=== PATIENT | female | born 1970 | race Caucasian/White ===

== ENCOUNTER → 2018-05-04 13:10 | Observation (INO) ==
[2018-05-03 22:25] LABS: BASOPHILS # (AUTO) 0.1 X10^3/uL (0.0-0.1); BASOPHILS % (AUTO) 0.8 % (0.2-1.0); EOSINOPHILS # (AUTO) 0.4 x10^3/uL (0.0-0.2); EOSINOPHILS % (AUTO) 5.3 % (0.9-2.9); HEMATOCRIT 38.6 % (36.0-47.0); HEMOGLOBIN 13.2 g/dL (12.0-16.0); LYMPHOCYTES # (AUTO) 1.8 X10^3/uL (1.3-2.9); LYMPHOCYTES % (AUTO) 26.6 % (21.0-51.0); MEAN CORPUSCULAR HEMOGLOBIN 32.8 pg (27.0-34.0); MEAN CORPUSCULAR HGB CONC 34.2 g/dL (33.0-35.0); MEAN CORPUSCULAR VOLUME 95.9 fL (80.0-100.0); MEAN PLATELET VOLUME 8.5 fL (7.4-11.0); MONOCYTES # (AUTO) 0.4 x10^3/uL (0.3-0.8); MONOCYTES % (AUTO) 5.8 % (0.0-13.0); NEUTROPHILS # (AUTO) 4.1 x10^3/uL (2.2-4.8); NEUTROPHILS % (AUTO) 61.5 % (42.0-75.0); PLATELET COUNT 227 X10^3/uL (150.0-450.0); RED BLOOD COUNT 4.03 X10^6/uL (3.5-5.4); RED CELL DISTRIBUTION WIDTH 14.1 % (11.6-16.5); WHITE BLOOD COUNT 6.7 X10^3/uL (3.6-10.0)
[2018-05-03 22:33] LABS: ALANINE AMINOTRANSFERASE 20 Units/L (12-78); ALBUMIN 3.6 g/dL (3.4-5.0); ALKALINE PHOSPHATASE 59 Units/L (46-116); AMYLASE 28 Units/L (25-115); ASPARTATE AMINO TRANSFERASE 14 Units/L (15-37); BLOOD UREA NITROGEN 19 mg/dL (7-18); CALCIUM 9.3 mg/dL (8.5-10.1); CARBON DIOXIDE 25.9 mmol/L (21-32); CHLORIDE 104 mmol/L (98-107); CREATININE 0.71 mg/dL (0.55-1.02); LIPASE 72 Units/L (73-393); MAGNESIUM 2.1 mg/dL (1.7-2.9); SODIUM 137 mmol/L (136-145); TOTAL PROTEIN 6.2 g/dL (6.4-8.2); eGFR NON BLACK RACES > 60 (>60)
[2018-05-03 22:35] VITALS: BMI 39.5
[2018-05-03] MEDS: NS 1000 ML 1,000 ML IV SCH (22:43)
[2018-05-04] MEDS: NS 1000 ML 1,000 ML IV SCH (06:04)
[2018-05-04 06:24] LABS: BASOPHILS % (AUTO) 0.6 % (0.2-1.0); EOSINOPHILS # (AUTO) 0.3 x10^3/uL (0.0-0.2); HEMATOCRIT 36.9 % (36.0-47.0); HEMOGLOBIN 12.6 g/dL (12.0-16.0); LYMPHOCYTES # (AUTO) 1.5 X10^3/uL (1.3-2.9); LYMPHOCYTES % (AUTO) 34.5 % (21.0-51.0); MEAN CORPUSCULAR HEMOGLOBIN 32.8 pg (27.0-34.0); MEAN CORPUSCULAR HGB CONC 34.1 g/dL (33.0-35.0); MEAN CORPUSCULAR VOLUME 96.4 fL (80.0-100.0); MEAN PLATELET VOLUME 8.8 fL (7.4-11.0); MONOCYTES # (AUTO) 0.2 x10^3/uL (0.3-0.8); MONOCYTES % (AUTO) 5.5 % (0.0-13.0); NEUTROPHILS # (AUTO) 2.3 x10^3/uL (2.2-4.8); NEUTROPHILS % (AUTO) 53.4 % (42.0-75.0); PLATELET COUNT 193 X10^3/uL (150.0-450.0); RED BLOOD COUNT 3.83 X10^6/uL (3.5-5.4); RED CELL DISTRIBUTION WIDTH 14.3 % (11.6-16.5); WHITE BLOOD COUNT 4.3 X10^3/uL (3.6-10.0)
[2018-05-04 06:26] LABS: BILIRUBIN,URINE NEGATIVE (NEGATIVE); BLOOD/HEMOGLOBIN,URINE NEGATIVE (NEGATIVE); GLUCOSE, URINE NEGATIVE (NEGATIVE); KETONES,URINE NEGATIVE (NEGATIVE); LEUKOCYTE ESTERASE ,URINE NEGATIVE (NEGATIVE); NITRITES,URINE NEGATIVE (NEGATIVE); PROTEIN,URINE 1+ (NEGATIVE); UROBILINOGEN,URINE NORMAL (NORMAL)
[2018-05-04 06:28] LABS: ALANINE AMINOTRANSFERASE 17 Units/L (12-78); ALBUMIN 3.1 g/dL (3.4-5.0); ALKALINE PHOSPHATASE 53 Units/L (46-116); ASPARTATE AMINO TRANSFERASE 12 Units/L (15-37); BLOOD UREA NITROGEN 15 mg/dL (7-18); CALCIUM 8.8 mg/dL (8.5-10.1); CHLORIDE 107 mmol/L (98-107); COR CA(FOR HYPOALB) 9.5 mg/dL (8.5-10.1); CREATININE 0.69 mg/dL (0.55-1.02); SODIUM 140 mmol/L (136-145); TOTAL PROTEIN 5.6 g/dL (6.4-8.2); eGFR NON BLACK RACES > 60 (>60)
[2018-05-04 06:35] LABS: APPEARANCE,URINE CLEAR (CLEAR); COLOR,URINE YELLOW (YELLOW)
[2018-05-04 06:36] LABS: BACTERIA,URINE NEGATIVE /HPF (NEGATIVE); RBC,URINE NONE SEEN /HPF (NONE SEEN); SQUAMOUS EPITHELIAL CELL,UR FEW /HPF (NEGATIVE)
--- NOTE | 2018-05-04 08:22 | DR.UPDATE ---
H&P Update History and Physical Update: H&P UPDATE FOR 05/03/2018 WAS SEEN TODAY IN THE OFFICE. A H&P WAS COMPLETED PRIOR TO ADMISSION. PATIENT HAS BEEN SEEN AND EXAMINED WITH NO CHANGES NOTED TO H&P. Changes noted: NO Yes with the following:
--- NOTE | 2018-05-04 09:52 | RAD ---
History: Right-sided abdominal pain Study: KUB Findings: A spine view of the abdomen and pelvis shows postoperative changes of laparoscopic band pro cedure. A large amount of stool is seen within the right colon extending to the mid transverse colon. Scatter ed gas is seen within the left colon. No focal distension of small bowel is evident. Surgical clips a re seen within the gallbladder fossa. The inferior pelvis is not included on the film. Impression: 1. Status post laparoscopic band procedure. 2. Changes compatible constipation with a large amount of stool in the right colon extending to the m id transverse colon. 3. No focal distension of small or large bowel. Reported By:
[~2018-05-04 13:10] MED LIST: ATIVAN INJ 2 MG VIAL IVP PRN; DULCOLAX SUPPOSITORY 10 MG RECTAL SCH; MILK OF MAGNESIA PO SCH; MOBIC TAB 15 MG PO SCH; TORADOL 30 MG VIAL IVP SCH; ZOFRAN INJ 4 MG VIAL IVP PRN
[2018-05-04 13:32] VITALS: BP 115/62
--- NOTE | 2018-05-19 13:38 | DR.CARTERD ---
- Discharge Summary for: Discharge Summary for Date of:: 05/04/18 - Admission Date Date of Admission: 05/03/18 - Admission Diagnoses Admission Diagnosis: 1. Low back pain 2. Nausea 3. Anxiety - Discharge Date Discharge Date: 05/04/18 - Discharge Diagnoses Discharge Diagnosis: 1. Low back pain 2. Constipation 3. Nausea 4. Anxiety - Hospital Course Hospital Course: Day one, Ms. Montano was a direct admit from our office. Patient was seen in office complaining of lower right side back pain. Patient underwent out patient testing suggesting possible Ileus. Patient rated pain a 5 on scale of 0-10 in lower back. Patient complained of nausea with anxiety and had received Ativan 1mg IV and Zofran 4mg IV X 1. Patient had large amt of stool noted on KUB. Patient was admitted for further evaluation and treatment. We continued to monitor patient and manage pain as we gently hydrated. Medical Hx: Anxiety, Depression, Smoker. Medications: Ativan IV 1MG IVP Q 8H PRN, Zofran INJ 4mg IVP Q 4H PRN N/V, Normal Saline @ 100mls HR IV. Abnormal Labs: BUN 19, AST 14, Total Protein 6.2, Lipase 72. Urine: WNL. KUB: Status post laparoscopic band procedure; Changes compatible constipation with a large amount of stool in the right colon extending to the mid transverse colon; No focal distension of small or large bowel. Ct of abd/pelvis obtained and reported: No evidence of renal stones or hydroureteronephrosis; No acute intra-abdominal intrapelvic process; Status post appendectomy and cholecystectomy. Patient started on Meloxicam po and Toradol IV. Day two, patient reported she was feeling better. She reported back pain was improved with medications. Patient received a Dulcolax suppository and Milk of Magnesia for constipation. She denied abdominal pain. Vital signs stable. Labs wnl. We planned for discharge. Instructions for medications and follow up were discussed with patient and family, both voiced understanding. Patient discharged home in stable condition with family. - Discharge Medications Discharge Medications: Home Medication List meloxicam 15 mg PO DAILY #30 tab 05/04/18 [Rx] tizanidine [Zanaflex] 4 mg PO HS #30 cap 05/04/18 [Rx] Prescriptions: meloxicam Wilfredo Buckley tizanidine [Zanaflex] Wilfredo Buckley Home medications alprazolam 0.5 mg PO NEEDED PRN 06/23/14 escitalopram oxalate [Lexapro] 20 mg PO DAILY 06/23/14 - Discharge Disposition Discharge Disposition: Patient is to follow up with LACI Schaefer in one week.
== END | disposition home or self-care (01) ==
LOC: MED/SURG
PROVIDERS: ADMIT Internal Medicine; ATTEND Internal Medicine
DX: K56.7 Ileus, unspecified; R10.84 Generalized abdominal pain; R11.0 Nausea; R93.8 Abnormal findings on diagnostic imaging of other specified body structures
CPT/HCPCS: 36415; 74000; 74018; 80053; 81001; 82150; 83690; 83735; 85025; 87086; A4216; A4222; G0378; J1885; J2060; J2405; J7030

== ENCOUNTER 2023-12-29 14:15 | Observation (INO) ==
--- NOTE | 2023-12-29 14:42 | EKG ---
Test Reason : HYPOXIA Blood Pressure : */* mmHG Vent. Rate : 81 BPM Atrial Rate : 81 BPM P-R Int : 130 ms QRS Dur : 94 ms QT Int : 362 ms P-R-T Axes : 59 18 49 degrees QTc Int : 420 ms Sinus rhythm with occasional premature ventricular complexes Otherwise normal ECG No previous ECGs available Confirmed by Jamar Miramontes MD ([id number]) on 12/30/2023 7:35:19 AM Referred By: Confirmed By: Jamar Miramontes MD
[2023-12-29 15:17] LABS: BASOPHILS # (AUTO) 0.1 X10^3/uL (0.0-0.1); BASOPHILS % (AUTO) 1.6 % (0.2-1.0); EOSINOPHILS # (AUTO) 0.3 x10^3/uL (0.0-0.2); HEMATOCRIT 33.3 % (36.0-47.0); HEMOGLOBIN 10.8 g/dL (12.0-16.0); LYMPHOCYTES # (AUTO) 1.2 X10^3/uL (1.3-2.9); LYMPHOCYTES % (AUTO) 23.1 % (21.0-51.0); MEAN CORPUSCULAR HEMOGLOBIN 27.4 pg (27.0-34.0); MEAN CORPUSCULAR HGB CONC 32.4 g/dL (33.0-35.0); MEAN CORPUSCULAR VOLUME 84.5 fL (80.0-100.0); MEAN PLATELET VOLUME 8.1 fL (7.4-11.0); MONOCYTES # (AUTO) 0.4 x10^3/uL (0.3-0.8); MONOCYTES % (AUTO) 7.5 % (0.0-13.0); NEUTROPHILS # (AUTO) 3.1 x10^3/uL (2.2-4.8); NEUTROPHILS % (AUTO) 61.8 % (42.0-75.0); PLATELET COUNT 261 X10^3/uL (150.0-450.0); RED BLOOD COUNT 3.94 X10^6/uL (3.5-5.4); WHITE BLOOD COUNT 5.1 X10^3/uL (3.6-10.0)
[2023-12-29 15:27] LABS: ALANINE AMINOTRANSFERASE 16 Units/L (12-78); ALKALINE PHOSPHATASE 72 Units/L (46-116); ASPARTATE AMINO TRANSFERASE 10 Units/L (15-37); BLOOD UREA NITROGEN 6 mg/dL (7-18); CALCIUM 9.6 mg/dL (8.5-10.1); CARBON DIOXIDE 25.4 mmol/L (21-32); CHLORIDE 104 mmol/L (98-107); COR CA(FOR HYPOALB) 10.4 mg/dL (8.5-10.1); CREATININE 0.88 mg/dL (0.55-1.02); GLUCOSE 93 mg/dL (65-99); SODIUM 140 mmol/L (136-145); TOTAL PROTEIN 7.1 g/dL (6.4-8.2); eGFR NON BLACK RACES > 60 (>60)
[2023-12-29 15:42] LABS: ABG ALLEN TEST POS; ABG HCO3 25.5 mmol/L (22-26)
--- NOTE | 2023-12-29 15:47 | RAD ---
EXAM:CHEST, 1 VIEWHISTORY:COVID, hypoxemiaCOMPARISON:12/25/2023FINDINGS:T he trachea is midline. The cardiac silhouette is unremarkable. Improved aeration of the right lower lobe and right mid lung zone is observed consistent with a resolving bronchopneumonia. The left hemithorax appears clear. The bony thorax is unremarkable.IMPRESSION:Improved aeration of the right hemithorax.THIS IS AN ELECTRONICALLY VERIFIED FINAL REPORT12/29/2023 3:43 PM - Electronically signed by Yonatan Brown MD
[2023-12-29] MEDS: XOPENEX 1.25 MG/3 ML NEBULE NEB ONE (16:01)
[2023-12-29] MEDS: ROBITUSSIN (PLAIN) PO SCH (16:11)
[2023-12-29] MEDS: SOLU-Medrol 125 MG VIAL IVP SCH (16:12)
[2023-12-29] MEDS: PROTONIX INJ 40 MG VIAL IVP SCH (16:12)
[2023-12-29] MEDS: ZITHROMAX INJ 500 MG VIAL 500 MG in NS 250 ML IV 250 ML IV SCH (16:16)
[2023-12-29] MEDS: NS 1,000 ML IV 1,000 ML IV SCH (16:17)
[2023-12-29] MEDS: LEVAQUIN PREMIX IV 500 MG 500 MG/100 ML BAG IV SCH (16:17)
[2023-12-29] MEDS: ZOFRAN INJ 4 MG VIAL IVP SCH (16:25)
[2023-12-29 17:05] LABS: BILIRUBIN,URINE NEGATIVE (NEGATIVE); BLOOD/HEMOGLOBIN,URINE NEGATIVE (NEGATIVE); GLUCOSE, URINE NEGATIVE (NEGATIVE); KETONES,URINE NEGATIVE (NEGATIVE); LEUKOCYTE ESTERASE ,URINE NEGATIVE (NEGATIVE); NITRITES,URINE NEGATIVE (NEGATIVE); PROTEIN,URINE NEGATIVE (NEGATIVE); UROBILINOGEN,URINE 1+ (NORMAL)
[2023-12-29 17:15] LABS: APPEARANCE,URINE CLEAR (CLEAR); BACTERIA,URINE NEGATIVE /HPF (NEGATIVE); COLOR,URINE YELLOW (YELLOW); RBC,URINE NONE SEEN /HPF (0-3); SQUAMOUS EPITHELIAL CELL,UR RARE /HPF (NEGATIVE)
[2023-12-29] MEDS: TYLENOL 325 MG TAB PO PRN (17:41)
[2023-12-29] MEDS: PULMICORT NEB TX 0.5 MG NEB SCH (20:55)
[2023-12-29] MEDS: XOPENEX 1.25 MG/3 ML NEBULE NEB SCH (20:55)
[2023-12-29] MEDS: RESTORIL CAP 15 MG PO PRN (23:08)
[2023-12-30 06:16] LABS: BASOPHILS % (AUTO) 0.1 % (0.2-1.0); HEMATOCRIT 28.3 % (36.0-47.0); HEMOGLOBIN 9.4 g/dL (12.0-16.0); LYMPHOCYTES # (AUTO) 0.3 X10^3/uL (1.3-2.9); LYMPHOCYTES % (AUTO) 7.7 % (21.0-51.0); MEAN CORPUSCULAR HEMOGLOBIN 27.9 pg (27.0-34.0); MEAN CORPUSCULAR HGB CONC 33.4 g/dL (33.0-35.0); MEAN CORPUSCULAR VOLUME 83.7 fL (80.0-100.0); MONOCYTES # (AUTO) 0 x10^3/uL (0.3-0.8); MONOCYTES % (AUTO) 1.1 % (0.0-13.0); NEUTROPHILS # (AUTO) 3.4 x10^3/uL (2.2-4.8); NEUTROPHILS % (AUTO) 91.1 % (42.0-75.0); PLATELET COUNT 223 X10^3/uL (150.0-450.0); RED BLOOD COUNT 3.38 X10^6/uL (3.5-5.4); WHITE BLOOD COUNT 3.7 X10^3/uL (3.6-10.0)
[2023-12-30 06:24] LABS: ALANINE AMINOTRANSFERASE 16 Units/L (12-78); ALBUMIN 2.7 g/dL (3.4-5.0); ALKALINE PHOSPHATASE 63 Units/L (46-116); ASPARTATE AMINO TRANSFERASE < 6 Units/L (15-37); BLOOD UREA NITROGEN 6 mg/dL (7-18); CALCIUM 9.1 mg/dL (8.5-10.1); CARBON DIOXIDE 23.8 mmol/L (21-32); CHLORIDE 104 mmol/L (98-107); COR CA(FOR HYPOALB) 10.1 mg/dL (8.5-10.1); COR NA(FOR HYPERGLY) 139 mmol/L (136-145); CREATININE 0.88 mg/dL (0.55-1.02); GLUCOSE 162 mg/dL (65-99); POTASSIUM 3.9 mmol/L (3.5-5.1); SODIUM 138 mmol/L (136-145); TOTAL PROTEIN 6.6 g/dL (6.4-8.2); eGFR NON BLACK RACES > 60 (>60)
[2023-12-30 06:57] LABS: BAND NEUTROPHILS % 8 % (0-10); PLATELET MORPHOLOGY COMMENT NORMAL (NORMAL)
[2023-12-30 06:58] LABS: ANISOCYTOSIS SLIGHT
[2023-12-30] MEDS: XOPENEX 1.25 MG/3 ML NEBULE NEB ONE (07:03)
[2023-12-30] MEDS: BENICAR PO SCH (09:05)
[2023-12-30] MEDS: PROzac PO SCH (09:05)
[2023-12-30 09:41] LABS: RETICULOCYTE % 1.33 % (0.8-2.2)
[2023-12-30] MEDS: TUSSIONEX PENNKINETIC SUSP PO PRN (10:03)
[2023-12-30] MEDS: LASIX IVP SCH (13:06)
[2023-12-30] MEDS: SOLU-Medrol 125 MG VIAL IVP SCH (20:50)
[2023-12-31 06:28] LABS: BASOPHILS % (AUTO) 0.1 % (0.2-1.0); HEMATOCRIT 28.7 % (36.0-47.0); HEMOGLOBIN 9.3 g/dL (12.0-16.0); LYMPHOCYTES # (AUTO) 0.4 X10^3/uL (1.3-2.9); LYMPHOCYTES % (AUTO) 4.8 % (21.0-51.0); MEAN CORPUSCULAR HEMOGLOBIN 27.6 pg (27.0-34.0); MEAN CORPUSCULAR HGB CONC 32.5 g/dL (33.0-35.0); MEAN CORPUSCULAR VOLUME 84.7 fL (80.0-100.0); MEAN PLATELET VOLUME 8.3 fL (7.4-11.0); MONOCYTES # (AUTO) 0.2 x10^3/uL (0.3-0.8); MONOCYTES % (AUTO) 2.5 % (0.0-13.0); NEUTROPHILS # (AUTO) 7.8 x10^3/uL (2.2-4.8); NEUTROPHILS % (AUTO) 92.6 % (42.0-75.0); PLATELET COUNT 256 X10^3/uL (150.0-450.0); RED BLOOD COUNT 3.38 X10^6/uL (3.5-5.4); RED CELL DISTRIBUTION WIDTH 17.3 % (11.6-16.5); WHITE BLOOD COUNT 8.5 X10^3/uL (3.6-10.0)
[2023-12-31 06:40] LABS: ALANINE AMINOTRANSFERASE 15 Units/L (12-78); ALBUMIN 2.8 g/dL (3.4-5.0); ALKALINE PHOSPHATASE 60 Units/L (46-116); ASPARTATE AMINO TRANSFERASE 8 Units/L (15-37); BLOOD UREA NITROGEN 11 mg/dL (7-18); CALCIUM 9.3 mg/dL (8.5-10.1); CARBON DIOXIDE 22.4 mmol/L (21-32); CHLORIDE 105 mmol/L (98-107); COR CA(FOR HYPOALB) 10.3 mg/dL (8.5-10.1); COR NA(FOR HYPERGLY) 141 mmol/L (136-145); CREATININE 1.01 mg/dL (0.55-1.02); GLUCOSE 196 mg/dL (65-99); POTASSIUM 3.8 mmol/L (3.5-5.1); SODIUM 139 mmol/L (136-145); TOTAL PROTEIN 6.5 g/dL (6.4-8.2); eGFR NON BLACK RACES > 60 (>60)
[2023-12-31] MEDS ORDERED: ROBITUSSIN (PLAIN) PO PRN ×2 (06:50→07:13)
[2023-12-31 07:37] LABS: BAND NEUTROPHILS % 6 % (0-10); PLATELET MORPHOLOGY COMMENT NORMAL (NORMAL)
[2023-12-31] MEDS ORDERED: ZITHROMAX INJ 500 MG VIAL IV ONE (08:33)
[2023-12-31] MEDS: ZOFRAN INJ 4 MG VIAL IVP SCH (08:53)
[2023-12-31] MEDS: TUSSIONEX PENNKINETIC SUSP PO SCH (08:53)
[2023-12-31] MEDS: SOLU-Medrol 40 MG VIAL IVP SCH (08:55)
[2023-12-31] MEDS: NS 100 ML IV 100 ML ONE (12:41)
[2023-12-31] MEDS: OMNIPAQUE 350 mg/mL 100 mL BTL 100 ML ONE (12:41)
--- NOTE | 2023-12-31 13:12 | DR.H&P ---
H&P History & Physical for Day of: H&P Date: 12/29/23 Chief Complaint Chief Complaint: Abdominal pain, nausea, vomiting, shortness of breath since 12/24/23 Allergies Allergies Allergy/AdvReac Type Severity Reaction Status Date / Time No Known Drug Allergies Allergy Unknown Verified 12/29/23 15:23 History of Present Illness History of Present Illness: 53 year old white female patient who is a direct admit for treatment of Covid-19 pneumonia with hypoxia. Patient reports having ongoing symptoms of abdominal pain, nausea, vomiting, shortness of breath since 12/24/23. She presented to ER on 12/25/23 and tested positive for covid. Chest xray showed probable right middle lobe pneumonia. ER labs revealed an elevated D- dimer. She had a CTA of chest that showed "possible small filling defects in the left apical segment and left lateral basal segment favored to be artifactual rather than true pulmonary emboli. Dilated pulmonary artery consistent with pulmonary artery hypertension. Mildly dilated ascending thoracic aorta. Bilateral airspace and ground-glass opacities worst in the right lower lobe consistent with pneumonia in the appropriate clinical setting. Recommend follow-up imaging to document resolution after appropriate treatment. Recommend nonemergent CT adrenal protocol for left adrenal nodule." She was treated with liter bolus of NS, zofran 4mg IV, and rocephin 1g IV. She was discharged home from ER with prescription for paxlovid , levaquin 500mg daily x7 days, eliquis 10mg PO BID x7 days, then 5mg PO BID. She was also recommended to take zinc, vi tamin c, vitamin d, and quarantine for 5 days. Patient denies improvement of symptoms. Past Medical History Past Medical History: Anemia, Anxiety, Arthritis, Depression and GERD Past Surgical History Surgical History: Appendectomy, Cholecystectomy, Ortho Surgery (Total knee replacement), Weight Loss Surgery (Lapband) and Other (Breast Reduction) Family History Family Medical History: Diabetes Mellitus and Cancer Social History Does patient currently use any type of tobacco product: Yes Have you used tobacco products in the last 12 months: Yes Type of Tobacco Use: Cigarettes How many years tobacco product used: 30 Alcohol Use: None Drug Use: None Medications Home Medications: Home Medications Medication Instructions Recorded Confirmed Type tizanidine 4 mg capsule (Zanaflex) 4 mg PO HS PRN 07/09/18 12/29/23 History progesterone micronized 100 mg 100 mg PO QAM 08/17/23 12/29/23 History capsule cholecalciferol (vitamin D3) 125 5,000 mcg PO WEEKLY 12/29/23 12/29/23 History mcg (5,000 unit) tablet fluoxetine 40 mg capsule (Prozac) 40 mg PO DAILY 12/29/23 12/29/23 History Labs 12/31/23 05:40 12/31/23 05:40 Labs: 12/29/23 16:35 Urine,Clean Catch Urine Culture - Preliminary Laboratory WBC 3.7 X10^3/uL (3.6-10.0) 12/30/23 05:20 RBC 3.38 X10^6/uL (3.5-5.4) L 12/30/23 05:20 Hgb 9.4 g/dL (12.0-16.0) L 12/30/23 05:20 Hct 28.3 % (36.0-47.0) L 12/30/23 05:20 MCV 83.7 fL (80.0-100.0) 12/30/23 05:20 MCH 27.9 pg (27.0-34.0) 12/30/23 05:20 MCHC 33.4 g/dL (33.0-35.0) 12/30/23 05:20 RDW 17.0 % (11.6-16.5) H 12/30/23 05:20 Plt Count 223 X10^3/uL (150.0-450.0) 12/30/23 05:20 Plt Count Comment Adequate (ADEQUATE) 12/30/23 05:20 MPV 8.0 fL (7.4-11.0) 12/30/23 05:20 Neut % (Auto) 91.1 % (42.0-75.0) H 12/30/23 05:20 Lymph % (Auto) 7.7 % (21.0-51.0) L 12/30/23 05:20 [place] % (Auto) 1.1 % (0.0-13.0) 12/30/23 05:20 Eos % (Auto) 0.0 % (0.9-2.9) L 12/30/23 05:20 Baso % (Auto) 0.1 % (0.2-1.0) L 12/30/23 05:20 Neut # (Auto) 3.4 x10^3/uL (2.2-4.8) 12/30/23 05:20 Lymph # (Auto) 0.3 X10^3/uL (1.3-2.9) L 12/30/23 05:20 [place] # (Auto) 0 x10^3/uL (0.3-0.8) L 12/30/23 05:20 Eos # (Auto) 0.0 x10^3/uL (0.0-0.2) 12/30/23 05:20 Baso # (Auto) 0.0 X10^3/uL (0.0-0.1) 12/30/23 05:20 Absolute Nucleated RBC 0.0 /100WBC 12/30/23 05:20 Total Counted 100 12/30/23 05:20 Neutrophils % (Manual) 80 % (39-76) H 12/30/23 05:20 Band Neutrophils % 8 % (0-10) 12/30/23 05:20 Lymphocytes % (Manual) 10 % (13-43) L 12/30/23 05:20 Monocytes % (Manual) 2 % (4-9) L 12/30/23 05:20 Plt Morphology Comment Normal (NORMAL) 12/30/23 05:20 RBC Morphology Abnormal (NORMAL) A 12/30/23 05:20 Anisocytosis Slight A 12/30/23 05:20 Absolute Retic 0.0459 10^6/uL 12/30/23 05:20 Percent Retic 1.33 % (0.8-2.2) 12/30/23 05:20 D-Dimer 1.29 ug/ml (0.0-0.57) H 12/29/23 14:50 Sample Site Rrad 12/29/23 15:37 ABG pH 7.470 (7.35-7.45) H 12/29/23 15:37 ABG pCO2 35.0 mmHg (35.0-45.0) 12/29/23 15:37 ABG pO2 56.0 mmHg (80.0-100.0) L 12/29/23 15:37 ABG HCO3 25.5 mmol/L (22-26) 12/29/23 15:37 ABG O2 Saturation 91.0 % (90-100) 12/29/23 15:37 ABG Base Excess 2.0 mmol/L (-2.0-2.0) 12/29/23 15:37 Roman Test Pos 12/29/23 15:37 A-a Gradient 50.0 mmHg 12/29/23 15:37 FiO2 21.0 12/29/23 15:37 Blood Gas Comments Pt arely well elj cdn 12/29/23 15:37 Sodium 138 mmol/L (136-145) 12/30/23 05:20 Corrected Sodium 139 mmol/L (136-145) 12/30/23 05:20 Potassium 3.9 mmol/L (3.5-5.1) 12/30/23 05:20 Chloride 104 mmol/L (98-107) 12/30/23 05:20 Carbon Dioxide 23.8 mmol/L (21-32) 12/30/23 05:20 BUN 6 mg/dL (7-18) L 12/30/23 05:20 Creatinine 0.88 mg/dL (0.55-1.02) 12/30/23 05:20 Est GFR (MDRD) Af Amer > 60 (>60) 12/30/23 05:20 Est GFR (MDRD) Non-Af > 60 (>60) 12/30/23 05:20 Glucose 162 mg/dL (65-99) H 12/30/23 05:20 Calcium 9.1 mg/dL (8.5-10.1) 12/30/23 05:20 Corrected Calcium 10.1 mg/dL (8.5-10.1) 12/30/23 05:20 Total Bilirubin 0.20 mg/dL (0.2-1.0) 12/30/23 05:20 AST < 6 Units/L (15-37) L 12/30/23 05:20 ALT 16 Units/L (12-78) 12/30/23 05:20 Alkaline Phosphatase 63 Units/L (46-116) 12/30/23 05:20 Troponin I High Sens 6.2 ng/L (4.0-60.0) 12/29/23 15:52 B-Natriuretic Peptide 80.6 pg/mL (0-79) H 12/29/23 14:50 Total Protein 6.6 g/dL (6.4-8.2) 12/30/23 05:20 Albumin 2.7 g/dL (3.4-5.0) L 12/30/23 05:20 Globulin 3.9 g/dL (2.5-4.5) 12/30/23 05:20 Albumin/Globulin Ratio 0.7 Ratio (1.1-2.1) L 12/30/23 05:20 Specimen Type Clean catch urine 12/29/23 16:35 Urine Color Yellow (YELLOW) 12/29/23 16:35 Urine Appearance Clear (CLEAR) 12/29/23 16:35 Urine pH 7.0 (5.0 - 8.0) 12/29/23 16:35 Ur Specific [place] 1.010 (1.000-1.030) 12/29/23 16:35 Urine Protein Negative (NEGATIVE) 12/29/23 16:35 Urine Glucose (UA) Negative (NEGATIVE) 12/29/23 16:35 Urine Ketones Negative (NEGATIVE) 12/29/23 16:35 Urine Blood Negative (NEGATIVE) 12/29/23 16:35 Urine Nitrite Negative (NEGATIVE) 12/29/23 16:35 Urine Bilirubin Negative (NEGATIVE) 12/29/23 16:35 Urine Urobilinogen 1+ (NORMAL) 12/29/23 16:35 Ur Leukocyte Esterase Negative (NEGATIVE) 12/29/23 16:35 Urine RBC None seen /HPF (0-3) 12/29/23 16:35 Urine WBC 0-2 /HPF (0-5) 12/29/23 16:35 Ur Squamous Epith Cells Rare /HPF (NEGATIVE) 12/29/23 16:35 Urine Bacteria Negative /HPF (NEGATIVE) 12/29/23 16:35 Ur Culture Indicated? Yes/culture set up 12/29/23 16:35 Review of Systems Constitutional: No Symptoms Reported Eyes: No Symptoms Reported ENT: No Symptoms Reported Respiratory: Shortness of Breath Cardiovascular: No Symptoms Reported Gastrointestinal: Nausea, Vomiting and Abdominal Pain Genitourinary: No Symptoms Reported Musculoskeletal: No Symptoms Reported Skin: No Symptoms Reported Neurological: No Symptoms Reported Physical Exam Vital Signs: Vital Signs Temperature 98 F Temperature 97.8 F Pulse Rate [Apical] 56 Pulse Rate [Apical] 64 Pulse Rate 71 Pulse Rate 66 Respiratory Rate 20 Respiratory Rate 18 Respiratory Rate 20 Respiratory Rate 18 Blood Pressure [Left Arm] 130/74 Blood Pressure [Left Arm] 121/77 O2 Sat by Pulse Oximetry 95 O2 Sat by Pulse Oximetry 92 O2 Sat by Pulse Oximetry 95 O2 Sat by Pulse Oximetry 90 Oriented: Normal Eyes: Normal Ear: Normal Nose: Normal Throat: Normal Respiratory: Diminished Throughout Cardiovascular: Normal : Normal Auscultation: Bowel Sounds: Normal Palpation: Normal Tenderness: Epigastric Skin: Normal Psychiatric: Normal Mood Description: Calm Affect: Normal Speech Pattern: Clear Assessment/Plan (1) COVID-19: Narrative Support Text: Admit, IV ABTX, IV Steroids, IV hydration, Respiratory therapy, supplmental 02 PRN, antitussive medication, antiemetic medication, ppi therapy, verify and resume home medications. Obtain blood, sputum, urine culture. Obtain cbc, cmp, abg, d-dimer, chest xray, bnp, troponin. Status: Acute (2) D-dimer, elevated: Status: Acute (3) Pneumonia: Status: Acute
--- NOTE | 2023-12-31 13:14 | PCM.PROG ---
Progress Note Progress Note for Day of Date of Exam: 12/30/23 Subjective Subjective: 53 year old white female patient who was a direct admit on 12/29/23 for treatment of Covid-19 pneumonia with hypoxia. Upon admission, we obtained labs: wbc 5.1, hgb 10.8, bun 6/creatinine 0.88, d-dimer 1.29, bnp 80.6. She had a chest xray that showed improved aeration of the right hemithorax since 12/25/23. ABG: ph 7.470, pc02 35, p02 56, hc03 25.5, 02 sat 91, fi02 21. She was placed on supplemental 02 via nc at 2lpm. She was started on IV hydration, IV atbx, IV steroids, Respiratory therapy, antitussive medication, antiemetic medication, ppi therapy. We obtained blood, sputum, urine cultures. Urine culture resulted and shows no growth at day one. Morning labs: wbc 3.7, hgb 9.4, BUN 6/creatinine 0.88. AM EKG obtained and showed sinus rhythm with occasional premature ventricular complexes, Otherwise normal ECG. We obtained an echocardiogram this AM due to hypoxia, PVC's, and 12/25/23 CTA chest suggesting pulmonary hypertension: EF 63% and showed no signs of pulmonary hypertension. AM vitals: 130/74-56-20-98.0-92% on 2LNC. Past Medical Family Social History Allergies: Allergies No Known Drug Allergies Allergy (Unknown, Verified 12/29/23 15:23) Onset Date: 03/28/2013 Vital Signs and I&O's Vital Signs: Vital Signs Temperature 98 F Temperature 97.8 F Pulse Rate [Apical] 56 Pulse Rate [Apical] 64 Pulse Rate 71 Pulse Rate 66 Respiratory Rate 20 Respiratory Rate 18 Respiratory Rate 20 Respiratory Rate 18 Blood Pressure [Left Arm] 130/74 Blood Pressure [Left Arm] 121/77 O2 Sat by Pulse Oximetry 95 O2 Sat by Pulse Oximetry 92 O2 Sat by Pulse Oximetry 95 O2 Sat by Pulse Oximetry 90 Intake and Output: Intake & Output 12/27/23 12/28/23 12/29/23 12/30/23 11:59 11:59 11:59 11:59 Intake Total 1400 / 1400 Balance 1400 / 1400 Physical Exam Oriented: Normal Eyes: Normal Ear: Normal Nose: Normal Throat: Normal Cardiovascular: Normal : Normal Auscultation: Bowel Sounds: Normal Tenderness: Epigastric Skin: Normal Psychiatric: Normal Mood Description: Calm Affect: Normal Speech Pattern: Clear Laboratory and Diagnostics 12/31/23 05:40 12/31/23 05:40 Labs: 12/29/23 16:35 Urine,Clean Catch Urine Culture - Preliminary Laboratory WBC 3.7 X10^3/uL (3.6-10.0) 12/30/23 05:20 RBC 3.38 X10^6/uL (3.5-5.4) L 12/30/23 05:20 Hgb 9.4 g/dL (12.0-16.0) L 12/30/23 05:20 Hct 28.3 % (36.0-47.0) L 12/30/23 05:20 MCV 83.7 fL (80.0-100.0) 12/30/23 05:20 MCH 27.9 pg (27.0-34.0) 12/30/23 05:20 MCHC 33.4 g/dL (33.0-35.0) 12/30/23 05:20 RDW 17.0 % (11.6-16.5) H 12/30/23 05:20 Plt Count 223 X10^3/uL (150.0-450.0) 12/30/23 05:20 Plt Count Comment Adequate (ADEQUATE) 12/30/23 05:20 MPV 8.0 fL (7.4-11.0) 12/30/23 05:20 Neut % (Auto) 91.1 % (42.0-75.0) H 12/30/23 05:20 Lymph % (Auto) 7.7 % (21.0-51.0) L 12/30/23 05:20 [place] % (Auto) 1.1 % (0.0-13.0) 12/30/23 05:20 Eos % (Auto) 0.0 % (0.9-2.9) L 12/30/23 05:20 Baso % (Auto) 0.1 % (0.2-1.0) L 12/30/23 05:20 Neut # (Auto) 3.4 x10^3/uL (2.2-4.8) 12/30/23 05:20 Lymph # (Auto) 0.3 X10^3/uL (1.3-2.9) L 12/30/23 05:20 [place] # (Auto) 0 x10^3/uL (0.3-0.8) L 12/30/23 05:20 Eos # (Auto) 0.0 x10^3/uL (0.0-0.2) 12/30/23 05:20 Baso # (Auto) 0.0 X10^3/uL (0.0-0.1) 12/30/23 05:20 Absolute Nucleated RBC 0.0 /100WBC 12/30/23 05:20 Total Counted 100 12/30/23 05:20 Neutrophils % (Manual) 80 % (39-76) H 12/30/23 05:20 Band Neutrophils % 8 % (0-10) 12/30/23 05:20 Lymphocytes % (Manual) 10 % (13-43) L 12/30/23 05:20 Monocytes % (Manual) 2 % (4-9) L 12/30/23 05:20 Plt Morphology Comment Normal (NORMAL) 12/30/23 05:20 RBC Morphology Abnormal (NORMAL) A 12/30/23 05:20 Anisocytosis Slight A 12/30/23 05:20 Absolute Retic 0.0459 10^6/uL 12/30/23 05:20 Percent Retic 1.33 % (0.8-2.2) 12/30/23 05:20 D-Dimer 1.29 ug/ml (0.0-0.57) H 12/29/23 14:50 Sample Site Rrad 12/29/23 15:37 ABG pH 7.470 (7.35-7.45) H 12/29/23 15:37 ABG pCO2 35.0 mmHg (35.0-45.0) 12/29/23 15:37 ABG pO2 56.0 mmHg (80.0-100.0) L 12/29/23 15:37 ABG HCO3 25.5 mmol/L (22-26) 12/29/23 15:37 ABG O2 Saturation 91.0 % (90-100) 12/29/23 15:37 ABG Base Excess 2.0 mmol/L (-2.0-2.0) 12/29/23 15:37 Roman Test Pos 12/29/23 15:37 A-a Gradient 50.0 mmHg 12/29/23 15:37 FiO2 21.0 12/29/23 15:37 Blood Gas Comments Pt arely well elj cdn 12/29/23 15:37 Sodium 138 mmol/L (136-145) 12/30/23 05:20 Corrected Sodium 139 mmol/L (136-145) 12/30/23 05:20 Potassium 3.9 mmol/L (3.5-5.1) 12/30/23 05:20 Chloride 104 mmol/L (98-107) 12/30/23 05:20 Carbon Dioxide 23.8 mmol/L (21-32) 12/30/23 05:20 BUN 6 mg/dL (7-18) L 12/30/23 05:20 Creatinine 0.88 mg/dL (0.55-1.02) 12/30/23 05:20 Est GFR (MDRD) Af Amer > 60 (>60) 12/30/23 05:20 Est GFR (MDRD) Non-Af > 60 (>60) 12/30/23 05:20 Glucose 162 mg/dL (65-99) H 12/30/23 05:20 Calcium 9.1 mg/dL (8.5-10.1) 12/30/23 05:20 Corrected Calcium 10.1 mg/dL (8.5-10.1) 12/30/23 05:20 Iron 13 ug/dL (50-175) L 12/30/23 05:20 TIBC 367 ug/dL (250-450) 12/30/23 05:20 Transferrin 268 mg/dL (202-364) 12/30/23 05:20 Ferritin 59 ng/mL (8-252) 12/30/23 05:20 Total Bilirubin 0.20 mg/dL (0.2-1.0) 12/30/23 05:20 AST < 6 Units/L (15-37) L 12/30/23 05:20 ALT 16 Units/L (12-78) 12/30/23 05:20 Alkaline Phosphatase 63 Units/L (46-116) 12/30/23 05:20 Troponin I High Sens 6.2 ng/L (4.0-60.0) 12/29/23 15:52 B-Natriuretic Peptide 80.6 pg/mL (0-79) H 12/29/23 14:50 Total Protein 6.6 g/dL (6.4-8.2) 12/30/23 05:20 Albumin 2.7 g/dL (3.4-5.0) L 12/30/23 05:20 Globulin 3.9 g/dL (2.5-4.5) 12/30/23 05:20 Albumin/Globulin Ratio 0.7 Ratio (1.1-2.1) L 12/30/23 05:20 Vitamin B12 278 pg/mL (193-986) 12/30/23 05:20 Folate 3.8 ng/mL (>8.6) L 12/30/23 05:20 Specimen Type Clean catch urine 12/29/23 16:35 Urine Color Yellow (YELLOW) 12/29/23 16:35 Urine Appearance Clear (CLEAR) 12/29/23 16:35 Urine pH 7.0 (5.0 - 8.0) 12/29/23 16:35 Ur Specific [place] 1.010 (1.000-1.030) 12/29/23 16:35 Urine Protein Negative (NEGATIVE) 12/29/23 16:35 Urine Glucose (UA) Negative (NEGATIVE) 12/29/23 16:35 Urine Ketones Negative (NEGATIVE) 12/29/23 16:35 Urine Blood Negative (NEGATIVE) 12/29/23 16:35 Urine Nitrite Negative (NEGATIVE) 12/29/23 16:35 Urine Bilirubin Negative (NEGATIVE) 12/29/23 16:35 Urine Urobilinogen 1+ (NORMAL) 12/29/23 16:35 Ur Leukocyte Esterase Negative (NEGATIVE) 12/29/23 16:35 Urine RBC None seen /HPF (0-3) 12/29/23 16:35 Urine WBC 0-2 /HPF (0-5) 12/29/23 16:35 Ur Squamous Epith Cells Rare /HPF (NEGATIVE) 12/29/23 16:35 Urine Bacteria Negative /HPF (NEGATIVE) 12/29/23 16:35 Ur Culture Indicated? Yes/culture set up 12/29/23 16:35 Resp Viral Panel (PCR) See scanned report 12/29/23 14:34 Plan (1) COVID-19: Status: Acute Narrative Support Text: Obtain anemia panel. Continue IV ABTX, IV STEROIDS, IV HYDRATION, RESPIRATORY THERAPY, SUPPLEMENTAL 02 PRN, ANTITUSSIVE MEDICATION, ANTIEMETIC MEDICATION, PPI THERAPY, BP CONTROL. (2) D-dimer, elevated: Status: Acute (3) Pneumonia: Status: Acute
--- NOTE | 2023-12-31 13:29 | CT ---
EXAM: CTA, CHEST HISTORY: HYPOXIA, PNEUMONIA, POSSIBLE PE; COMPARISON: None available. TECHNIQUE: Multiple axial images of the chest were obtained from the thoracic inlet to the upper abdomen after t he administration of IV contrast. 3D reconstructions utilizing axial MIPS imaging was performed and r eviewed. Dose reduction techniques including Automated Exposure Control (AEC) and adjustment of mA a nd kV were utilized. FINDINGS: The mediastinum does not demonstrate significant pathological lymphadenopathy. There is no paracardia l effusion observed. The thoracic aorta is normal in its contour without evidence for aneurysmal dila tation. The central pulmonary arterial system does not demonstrate central filling defects to sugges t pulmonary emboli. Evaluation of the lung parenchyma demonstrates scattered airspace opacity left lower lobe most consis tent with subsegmental atelectasis.. No pulmonary nodule or mass can be identified. The bony thorax is unremarkable in its appearance. Gastric lap band is incidentally noted to be in position.. IMPRESSION: Subsegmental atelectasis of the right and left base without evidence for acute pulmonary emboli ident ified. THIS IS AN ELECTRONICALLY VERIFIED FINAL REPORT 12/31/2023 1:26 PM - Electronically signed by Yonatan Brown MD
[2023-12-31] MEDS: ALPRAZOLAM ODT PO PRN (20:01)
[2024-01-01 06:16] LABS: BASOPHILS % (AUTO) 0.1 % (0.2-1.0); EOSINOPHILS % (AUTO) 0.1 % (0.9-2.9); HEMATOCRIT 28.7 % (36.0-47.0); HEMOGLOBIN 9.5 g/dL (12.0-16.0); LYMPHOCYTES # (AUTO) 1.4 X10^3/uL (1.3-2.9); LYMPHOCYTES % (AUTO) 20.8 % (21.0-51.0); MEAN CORPUSCULAR VOLUME 84.8 fL (80.0-100.0); MEAN PLATELET VOLUME 8.1 fL (7.4-11.0); MONOCYTES # (AUTO) 0.3 x10^3/uL (0.3-0.8); MONOCYTES % (AUTO) 5.1 % (0.0-13.0); NEUTROPHILS # (AUTO) 4.9 x10^3/uL (2.2-4.8); NEUTROPHILS % (AUTO) 73.9 % (42.0-75.0); PLATELET COUNT 263 X10^3/uL (150.0-450.0); RED BLOOD COUNT 3.38 X10^6/uL (3.5-5.4); RED CELL DISTRIBUTION WIDTH 17.4 % (11.6-16.5); WHITE BLOOD COUNT 6.7 X10^3/uL (3.6-10.0)
[2024-01-01 06:29] LABS: ALANINE AMINOTRANSFERASE 15 Units/L (12-78); ALBUMIN 2.7 g/dL (3.4-5.0); ALKALINE PHOSPHATASE 53 Units/L (46-116); ASPARTATE AMINO TRANSFERASE 8 Units/L (15-37); BLOOD UREA NITROGEN 16 mg/dL (7-18); CALCIUM 9.3 mg/dL (8.5-10.1); CARBON DIOXIDE 27.5 mmol/L (21-32); CHLORIDE 106 mmol/L (98-107); COR CA(FOR HYPOALB) 10.3 mg/dL (8.5-10.1); CREATININE 0.97 mg/dL (0.55-1.02); GLUCOSE 93 mg/dL (65-99); MAGNESIUM 1.9 mg/dL (2.0-2.9); POTASSIUM 3.9 mmol/L (3.5-5.1); SODIUM 141 mmol/L (136-145); TOTAL PROTEIN 6.1 g/dL (6.4-8.2); eGFR NON BLACK RACES > 60 (>60)
[2024-01-01 06:35] LABS: ABG ALLEN TEST POS; ABG BASE EXCESS 3.1 mmol/L (-2.0-2.0); ABG HCO3 28.5 mmol/L (22-26)
[2024-01-01] MEDS: SOLU-Medrol 40 MG VIAL IVP SCH (08:19)
--- NOTE | 2024-01-01 08:23 | RAD ---
EXAM:CHEST, PA/LAT ADULTHISTORY:COVID PNEUMONIA ; GERD SX: APPY, CORAL, UTERINE ABLATION, LAP BAND, RIGHT KNEE REPLACEMENTCOMPARISON:12/29/2023FINDINGS: focal scarring or atelectasis. Minimal finding in the right lung base projecting below the hemidiaphragm. These were present on the CT from yesterday.Middle and upper lungs are clear. No pleural effusion.Cardiomegaly is present.The bones are unremarkable.IMPRESSION:1. Unchanged basilar atelectasisTHIS IS AN ELECTRONICALLY VERIFIED FINAL REPORT01/01/2024 8:20 AM - Electronically signed by Edil Tripathi MD
[2024-01-01 08:42] VITALS: BP 119/61; PULSE 61; RESP 20; TEMP 97.9; O2SAT 98
[2024-01-01] MEDS: ZITHROMAX INJ 500 MG VIAL IV ONE (09:53)
--- NOTE | 2024-01-01 11:47 | PCM.PROG ---
Progress Note Progress Note for Day of Date of Exam: 12/31/23 Subjective Subjective: 53 year old white female patient who was a direct admit on 12/29/23 for treatment of Covid-19 pneumonia with hypoxia. Upon admission, we obtained labs: wbc 5.1, hgb 10.8, bun 6/creatinine 0.88, d-dimer 1.29, bnp 80.6. She had a chest xray that showed improved aeration of the right hemithorax since 12/25/23. ABG: ph 7.470, pc02 35, p02 56, hc03 25.5, 02 sat 91, fi02 21. She was placed on supplemental 02 via nc at 2lpm. She was started on IV hydration, IV atbx, IV steroids, Respiratory therapy, antitussive medication, antiemetic medication, ppi therapy. We obtained blood, sputum, urine cultures. Urine culture resulted and shows no growth at day one, two. Blood culturesx2 showed no growth at day two. Morning labs: wbc 6.5, hgb 9.3, bun11/creatinine 1.01. We obtained a CTA chest that showed subsegmental atelectasis of the right and left base without evidence for acute pulmonary emboli identified. AM vitals: 118/62-64-18-97.8-96% at 2L NC. Past Medical Family Social History Allergies: Allergies No Known Drug Allergies Allergy (Unknown, Verified 12/29/23 15:23) Onset Date: 03/28/2013 Vital Signs and I&O's Vital Signs: Vital Signs Temperature 97.9 F Temperature 97.8 F Pulse Rate [Left] 61 Pulse Rate [Left] 58 Respiratory Rate 20 Respiratory Rate 18 Blood Pressure [Left Arm] 119/61 Blood Pressure [Left Arm] 111/63 O2 Sat by Pulse Oximetry 98 O2 Sat by Pulse Oximetry 95 Intake and Output: Intake & Output 12/29/23 12/30/23 12/31/23 01/01/24 11:59 11:59 11:59 11:59 Intake Total 1400 / 1400 4409 / 4409 2853 / 2853 Balance 1400 / 1400 4409 / 4409 2853 / 2853 Physical Exam Oriented: Normal Eyes: Normal Ear: Normal Nose: Normal Throat: Normal Respiratory: Diminished Cardiovascular: Normal : Normal Auscultation: Bowel Sounds: Normal Tenderness: Epigastric Skin: Normal Psychiatric: Normal Mood Description: Calm Affect: Normal Speech Pattern: Clear Laboratory and Diagnostics 01/01/24 05:25 01/01/24 05:25 Labs: 12/29/23 15:05 Blood Blood Culture - Preliminary 12/29/23 14:50 Blood Blood Culture - Preliminary 12/29/23 16:35 Urine,Clean Catch Urine Culture - Final Laboratory WBC 6.7 X10^3/uL (3.6-10.0) 01/01/24 05:25 RBC 3.38 X10^6/uL (3.5-5.4) L 01/01/24 05:25 Hgb 9.5 g/dL (12.0-16.0) L 01/01/24 05:25 Hct 28.7 % (36.0-47.0) L 01/01/24 05:25 MCV 84.8 fL (80.0-100.0) 01/01/24 05:25 MCH 28.0 pg (27.0-34.0) 01/01/24 05:25 MCHC 33.0 g/dL (33.0-35.0) 01/01/24 05:25 RDW 17.4 % (11.6-16.5) H 01/01/24 05:25 Plt Count 263 X10^3/uL (150.0-450.0) 01/01/24 05:25 Plt Count Comment Adequate (ADEQUATE) 12/31/23 05:40 MPV 8.1 fL (7.4-11.0) 01/01/24 05:25 Neut % (Auto) 73.9 % (42.0-75.0) 01/01/24 05:25 Lymph % (Auto) 20.8 % (21.0-51.0) L 01/01/24 05:25 [place] % (Auto) 5.1 % (0.0-13.0) 01/01/24 05:25 Eos % (Auto) 0.1 % (0.9-2.9) L 01/01/24 05:25 Baso % (Auto) 0.1 % (0.2-1.0) L 01/01/24 05:25 Neut # (Auto) 4.9 x10^3/uL (2.2-4.8) H 01/01/24 05:25 Lymph # (Auto) 1.4 X10^3/uL (1.3-2.9) 01/01/24 05:25 [place] # (Auto) 0.3 x10^3/uL (0.3-0.8) 01/01/24 05:25 Eos # (Auto) 0.0 x10^3/uL (0.0-0.2) 01/01/24 05:25 Baso # (Auto) 0.0 X10^3/uL (0.0-0.1) 01/01/24 05:25 Absolute Nucleated RBC 0.1 /100WBC 01/01/24 05:25 Total Counted 100 12/31/23 05:40 Neutrophils % (Manual) 88 % (39-76) H 12/31/23 05:40 Band Neutrophils % 6 % (0-10) 12/31/23 05:40 Lymphocytes % (Manual) 6 % (13-43) L 12/31/23 05:40 Monocytes % (Manual) 2 % (4-9) L 12/30/23 05:20 Plt Morphology Comment Normal (NORMAL) 12/31/23 05:40 RBC Morphology Normal (NORMAL) 12/31/23 05:40 Anisocytosis Slight A 12/30/23 05:20 Absolute Retic 0.0459 10^6/uL 12/30/23 05:20 Percent Retic 1.33 % (0.8-2.2) 12/30/23 05:20 D-Dimer 1.29 ug/ml (0.0-0.57) H 12/29/23 14:50 Sample Site Rr 01/01/24 06:24 ABG pH 7.400 (7.35-7.45) 01/01/24 06:24 ABG pCO2 46.0 mmHg (35.0-45.0) H 01/01/24 06:24 ABG pO2 54.0 mmHg (80.0-100.0) L 01/01/24 06:24 ABG HCO3 28.5 mmol/L (22-26) H 01/01/24 06:24 ABG O2 Saturation 88.0 % (90-100) L 01/01/24 06:24 ABG Base Excess 3.1 mmol/L (-2.0-2.0) H 01/01/24 06:24 Roman Test Pos 01/01/24 06:24 A-a Gradient 38.0 mmHg 01/01/24 06:24 FiO2 21.0 01/01/24 06:24 Blood Gas Comments Elías well sw 01/01/24 06:24 Sodium 141 mmol/L (136-145) 01/01/24 05:25 Corrected Sodium TNP 01/01/24 05:25 Potassium 3.9 mmol/L (3.5-5.1) 01/01/24 05:25 Chloride 106 mmol/L (98-107) 01/01/24 05:25 Carbon Dioxide 27.5 mmol/L (21-32) 01/01/24 05:25 BUN 16 mg/dL (7-18) 01/01/24 05:25 Creatinine 0.97 mg/dL (0.55-1.02) 01/01/24 05:25 Est GFR (MDRD) Af Amer > 60 (>60) 01/01/24 05:25 Est GFR (MDRD) Non-Af > 60 (>60) 01/01/24 05:25 Glucose 93 mg/dL (65-99) 01/01/24 05:25 Calcium 9.3 mg/dL (8.5-10.1) 01/01/24 05:25 Corrected Calcium 10.3 mg/dL (8.5-10.1) H 01/01/24 05:25 Magnesium 1.9 mg/dL (2.0-2.9) L 01/01/24 05:25 Iron 13 ug/dL (50-175) L 12/30/23 05:20 TIBC 367 ug/dL (250-450) 12/30/23 05:20 Transferrin 268 mg/dL (202-364) 12/30/23 05:20 Ferritin 59 ng/mL (8-252) 12/30/23 05:20 Total Bilirubin 0.10 mg/dL (0.2-1.0) L 01/01/24 05:25 AST 8 Units/L (15-37) L 01/01/24 05:25 ALT 15 Units/L (12-78) 01/01/24 05:25 Alkaline Phosphatase 53 Units/L (46-116) 01/01/24 05:25 Troponin I High Sens 6.2 ng/L (4.0-60.0) 12/29/23 15:52 B-Natriuretic Peptide 80.6 pg/mL (0-79) H 12/29/23 14:50 Total Protein 6.1 g/dL (6.4-8.2) L 01/01/24 05:25 Albumin 2.7 g/dL (3.4-5.0) L 01/01/24 05:25 Globulin 3.4 g/dL (2.5-4.5) 01/01/24 05:25 Albumin/Globulin Ratio 0.8 Ratio (1.1-2.1) L 01/01/24 05:25 Vitamin B12 278 pg/mL (193-986) 12/30/23 05:20 Folate 3.8 ng/mL (>8.6) L 12/30/23 05:20 Specimen Type Clean catch urine 12/29/23 16:35 Urine Color Yellow (YELLOW) 12/29/23 16:35 Urine Appearance Clear (CLEAR) 12/29/23 16:35 Urine pH 7.0 (5.0 - 8.0) 12/29/23 16:35 Ur Specific [place] 1.010 (1.000-1.030) 12/29/23 16:35 Urine Protein Negative (NEGATIVE) 12/29/23 16:35 Urine Glucose (UA) Negative (NEGATIVE) 12/29/23 16:35 Urine Ketones Negative (NEGATIVE) 12/29/23 16:35 Urine Blood Negative (NEGATIVE) 12/29/23 16:35 Urine Nitrite Negative (NEGATIVE) 12/29/23 16:35 Urine Bilirubin Negative (NEGATIVE) 12/29/23 16:35 Urine Urobilinogen 1+ (NORMAL) 12/29/23 16:35 Ur Leukocyte Esterase Negative (NEGATIVE) 12/29/23 16:35 Urine RBC None seen /HPF (0-3) 12/29/23 16:35 Urine WBC 0-2 /HPF (0-5) 12/29/23 16:35 Ur Squamous Epith Cells Rare /HPF (NEGATIVE) 12/29/23 16:35 Urine Bacteria Negative /HPF (NEGATIVE) 12/29/23 16:35 Ur Culture Indicated? Yes/culture set up 12/29/23 16:35 Resp Viral Panel (PCR) See scanned report 03/05/24 14:34 Plan (1) COVID-19: Status: Acute Narrative Support Text: IV ABTX, IV STEROIDS, IV HYDRATION, RESPIRATORY THERAPY, SUPPLEMENTAL 02 PRN, ANTITUSSIVE MEDICATION, ANTIEMETIC MEDICATION, PPI THERAPY, BP CONTROL. (2) D-dimer, elevated: Status: Acute (3) Pneumonia: Status: Acute
--- NOTE | 2024-01-01 11:47 | PCM.PROG ---
Progress Note Progress Note for Day of Date of Exam: 12/31/23 Subjective Subjective: 53 year old white female patient who was a direct admit on 12/29/23 for treatment of Covid-19 pneumonia with hypoxia. Upon admission, we obtained labs: wbc 5.1, hgb 10.8, bun 6/creatinine 0.88, d-dimer 1.29, bnp 80.6. She had a chest xray that showed improved aeration of the right hemithorax since 12/25/23. ABG: ph 7.470, pc02 35, p02 56, hc03 25.5, 02 sat 91, fi02 21. She was placed on supplemental 02 via nc at 2lpm. She was started on IV hydration, IV atbx, IV steroids, Respiratory therapy, antitussive medication, antiemetic medication, ppi therapy. We obtained blood, sputum, urine cultures. Urine culture resulted and shows no growth at day one. Morning labs: wbc 3.7, hgb 9.4, BUN 6/creatinine 0.88. AM EKG obtained and showed sinus rhythm with occasional premature ventricular complexes, Otherwise normal ECG. We obtained an echocardiogram this AM due to hypoxia, PVC's, and 12/25/23 CTA chest suggesting pulmonary hypertension: EF 63% and showed no signs of pulmonary hypertension. AM vitals: 130/74-56-20-98.0-92% on 2LNC. Past Medical Family Social History Allergies: Allergies No Known Drug Allergies Allergy (Unknown, Verified 12/29/23 15:23) Onset Date: 03/28/2013 Vital Signs and I&O's Vital Signs: Vital Signs Temperature 97.9 F Pulse Rate [Apical] 60 Pulse Rate 62 Respiratory Rate 21 Blood Pressure [Left Arm] 121/76 O2 Sat by Pulse Oximetry 95 O2 Sat by Pulse Oximetry 97 Intake and Output: Intake & Output 12/28/23 12/29/23 12/30/23 12/31/23 11:59 11:59 11:59 11:59 Intake Total 1400 / 1400 4409 / 4409 Balance 1400 / 1400 4409 / 4409 Physical Exam Oriented: Normal Eyes: Normal Ear: Normal Nose: Normal Throat: Normal Cardiovascular: Normal : Normal Auscultation: Bowel Sounds: Normal Tenderness: Epigastric Skin: Normal Psychiatric: Normal Mood Description: Calm Affect: Normal Speech Pattern: Clear Laboratory and Diagnostics 01/01/24 05:25 01/01/24 05:25 Labs: 12/29/23 16:35 Urine,Clean Catch Urine Culture - Preliminary Laboratory WBC 8.5 X10^3/uL (3.6-10.0) 12/31/23 05:40 RBC 3.38 X10^6/uL (3.5-5.4) L 12/31/23 05:40 Hgb 9.3 g/dL (12.0-16.0) L 12/31/23 05:40 Hct 28.7 % (36.0-47.0) L 12/31/23 05:40 MCV 84.7 fL (80.0-100.0) 12/31/23 05:40 MCH 27.6 pg (27.0-34.0) 12/31/23 05:40 MCHC 32.5 g/dL (33.0-35.0) L 12/31/23 05:40 RDW 17.3 % (11.6-16.5) H 12/31/23 05:40 Plt Count 256 X10^3/uL (150.0-450.0) 12/31/23 05:40 Plt Count Comment Adequate (ADEQUATE) 12/31/23 05:40 MPV 8.3 fL (7.4-11.0) 12/31/23 05:40 Neut % (Auto) 92.6 % (42.0-75.0) H 12/31/23 05:40 Lymph % (Auto) 4.8 % (21.0-51.0) L 12/31/23 05:40 [place] % (Auto) 2.5 % (0.0-13.0) 12/31/23 05:40 Eos % (Auto) 0.0 % (0.9-2.9) L 12/31/23 05:40 Baso % (Auto) 0.1 % (0.2-1.0) L 12/31/23 05:40 Neut # (Auto) 7.8 x10^3/uL (2.2-4.8) H 12/31/23 05:40 Lymph # (Auto) 0.4 X10^3/uL (1.3-2.9) L 12/31/23 05:40 [place] # (Auto) 0.2 x10^3/uL (0.3-0.8) L 12/31/23 05:40 Eos # (Auto) 0.0 x10^3/uL (0.0-0.2) 12/31/23 05:40 Baso # (Auto) 0.0 X10^3/uL (0.0-0.1) 12/31/23 05:40 Absolute Nucleated RBC 0.0 /100WBC 12/31/23 05:40 Total Counted 100 12/31/23 05:40 Neutrophils % (Manual) 88 % (39-76) H 12/31/23 05:40 Band Neutrophils % 6 % (0-10) 12/31/23 05:40 Lymphocytes % (Manual) 6 % (13-43) L 12/31/23 05:40 Monocytes % (Manual) 2 % (4-9) L 12/30/23 05:20 Plt Morphology Comment Normal (NORMAL) 12/31/23 05:40 RBC Morphology Normal (NORMAL) 12/31/23 05:40 Anisocytosis Slight A 12/30/23 05:20 Absolute Retic 0.0459 10^6/uL 12/30/23 05:20 Percent Retic 1.33 % (0.8-2.2) 12/30/23 05:20 D-Dimer 1.29 ug/ml (0.0-0.57) H 12/29/23 14:50 Sample Site Rrad 12/29/23 15:37 ABG pH 7.470 (7.35-7.45) H 12/29/23 15:37 ABG pCO2 35.0 mmHg (35.0-45.0) 12/29/23 15:37 ABG pO2 56.0 mmHg (80.0-100.0) L 12/29/23 15:37 ABG HCO3 25.5 mmol/L (22-26) 12/29/23 15:37 ABG O2 Saturation 91.0 % (90-100) 12/29/23 15:37 ABG Base Excess 2.0 mmol/L (-2.0-2.0) 12/29/23 15:37 Roman Test Pos 12/29/23 15:37 A-a Gradient 50.0 mmHg 12/29/23 15:37 FiO2 21.0 12/29/23 15:37 Blood Gas Comments Pt arely well elj cdn 12/29/23 15:37 Sodium 139 mmol/L (136-145) 12/31/23 05:40 Corrected Sodium 141 mmol/L (136-145) 12/31/23 05:40 Potassium 3.8 mmol/L (3.5-5.1) 12/31/23 05:40 Chloride 105 mmol/L (98-107) 12/31/23 05:40 Carbon Dioxide 22.4 mmol/L (21-32) 12/31/23 05:40 BUN 11 mg/dL (7-18) 12/31/23 05:40 Creatinine 1.01 mg/dL (0.55-1.02) 12/31/23 05:40 Est GFR (MDRD) Af Amer > 60 (>60) 12/31/23 05:40 Est GFR (MDRD) Non-Af > 60 (>60) 12/31/23 05:40 Glucose 196 mg/dL (65-99) H 12/31/23 05:40 Calcium 9.3 mg/dL (8.5-10.1) 12/31/23 05:40 Corrected Calcium 10.3 mg/dL (8.5-10.1) H 12/31/23 05:40 Iron 13 ug/dL (50-175) L 12/30/23 05:20 TIBC 367 ug/dL (250-450) 12/30/23 05:20 Transferrin 268 mg/dL (202-364) 12/30/23 05:20 Ferritin 59 ng/mL (8-252) 12/30/23 05:20 Total Bilirubin 0.10 mg/dL (0.2-1.0) L 12/31/23 05:40 AST 8 Units/L (15-37) L 12/31/23 05:40 ALT 15 Units/L (12-78) 12/31/23 05:40 Alkaline Phosphatase 60 Units/L (46-116) 12/31/23 05:40 Troponin I High Sens 6.2 ng/L (4.0-60.0) 12/29/23 15:52 B-Natriuretic Peptide 80.6 pg/mL (0-79) H 12/29/23 14:50 Total Protein 6.5 g/dL (6.4-8.2) 12/31/23 05:40 Albumin 2.8 g/dL (3.4-5.0) L 12/31/23 05:40 Globulin 3.7 g/dL (2.5-4.5) 12/31/23 05:40 Albumin/Globulin Ratio 0.8 Ratio (1.1-2.1) L 12/31/23 05:40 Vitamin B12 278 pg/mL (193-986) 12/30/23 05:20 Folate 3.8 ng/mL (>8.6) L 12/30/23 05:20 Specimen Type Clean catch urine 12/29/23 16:35 Urine Color Yellow (YELLOW) 12/29/23 16:35 Urine Appearance Clear (CLEAR) 12/29/23 16:35 Urine pH 7.0 (5.0 - 8.0) 12/29/23 16:35 Ur Specific [place] 1.010 (1.000-1.030) 12/29/23 16:35 Urine Protein Negative (NEGATIVE) 12/29/23 16:35 Urine Glucose (UA) Negative (NEGATIVE) 12/29/23 16:35 Urine Ketones Negative (NEGATIVE) 12/29/23 16:35 Urine Blood Negative (NEGATIVE) 12/29/23 16:35 Urine Nitrite Negative (NEGATIVE) 12/29/23 16:35 Urine Bilirubin Negative (NEGATIVE) 12/29/23 16:35 Urine Urobilinogen 1+ (NORMAL) 12/29/23 16:35 Ur Leukocyte Esterase Negative (NEGATIVE) 12/29/23 16:35 Urine RBC None seen /HPF (0-3) 12/29/23 16:35 Urine WBC 0-2 /HPF (0-5) 12/29/23 16:35 Ur Squamous Epith Cells Rare /HPF (NEGATIVE) 12/29/23 16:35 Urine Bacteria Negative /HPF (NEGATIVE) 12/29/23 16:35 Ur Culture Indicated? Yes/culture set up 12/29/23 16:35 Resp Viral Panel (PCR) See scanned report 12/29/23 14:34 Plan (1) COVID-19: Status: Acute (2) D-dimer, elevated: Status: Acute (3) Pneumonia: Status: Acute
--- NOTE | 2024-01-04 12:01 | PCM.DCPLAN ---
DISCHARGE SUMMARY Admission Date Date of Admission: 12/29/23 Discharge Date Discharge Date: 01/01/24 Admission Diagnoses (1) COVID-19: Status: Acute (2) D-dimer, elevated: Status: Acute (3) Pneumonia: Status: Acute Discharge Diagnoses Discharge Diagnosis: Resolved pneumonia- Add Anemia, osteoarthritis, GERD Discharge Medications Discharge Medications: Home Medication List cholecalciferol (vitamin D3) 125 mcg (5,000 unit) tablet 5,000 mcg PO WEEKLY 12/29/23 [History] fluoxetine 40 mg capsule (Prozac) 40 mg PO DAILY 12/29/23 [History] multivit-minerals no.73-iron fumarate 106 mg-folic acid 1 mg capsule (Hemocyte- Plus) 1 cap PO QAM #30 caps 01/01/24 [Rx] prednisone 10 mg tablet 10 mg PO QDAY #18 tabs 01/01/24 [Rx] Prescriptions: mv-mins no.73-iron fum-folic [Hemocyte-Plus] [facility] prednisone [facility] Course Latest Lab Results: Laboratory Last Values WBC 6.7 X10^3/uL (3.6-10.0) 01/01/24 05:25 RBC 3.38 X10^6/uL (3.5-5.4) L 01/01/24 05:25 Hgb 9.5 g/dL (12.0-16.0) L 01/01/24 05:25 Hct 28.7 % (36.0-47.0) L 01/01/24 05:25 MCV 84.8 fL (80.0-100.0) 01/01/24 05:25 MCH 28.0 pg (27.0-34.0) 01/01/24 05:25 MCHC 33.0 g/dL (33.0-35.0) 01/01/24 05:25 RDW 17.4 % (11.6-16.5) H 01/01/24 05:25 Plt Count 263 X10^3/uL (150.0-450.0) 01/01/24 05:25 Plt Count Comment Adequate (ADEQUATE) 12/31/23 05:40 MPV 8.1 fL (7.4-11.0) 01/01/24 05:25 Neut % (Auto) 73.9 % (42.0-75.0) 01/01/24 05:25 Lymph % (Auto) 20.8 % (21.0-51.0) L 01/01/24 05:25 [place] % (Auto) 5.1 % (0.0-13.0) 01/01/24 05:25 Eos % (Auto) 0.1 % (0.9-2.9) L 01/01/24 05:25 Baso % (Auto) 0.1 % (0.2-1.0) L 01/01/24 05:25 Neut # (Auto) 4.9 x10^3/uL (2.2-4.8) H 01/01/24 05:25 Lymph # (Auto) 1.4 X10^3/uL (1.3-2.9) 01/01/24 05:25 [place] # (Auto) 0.3 x10^3/uL (0.3-0.8) 01/01/24 05:25 Eos # (Auto) 0.0 x10^3/uL (0.0-0.2) 01/01/24 05:25 Baso # (Auto) 0.0 X10^3/uL (0.0-0.1) 01/01/24 05:25 Absolute Nucleated RBC 0.1 /100WBC 01/01/24 05:25 Total Counted 100 12/31/23 05:40 Neutrophils % (Manual) 88 % (39-76) H 12/31/23 05:40 Band Neutrophils % 6 % (0-10) 12/31/23 05:40 Lymphocytes % (Manual) 6 % (13-43) L 12/31/23 05:40 Monocytes % (Manual) 2 % (4-9) L 12/30/23 05:20 Plt Morphology Comment Normal (NORMAL) 12/31/23 05:40 RBC Morphology Normal (NORMAL) 12/31/23 05:40 Anisocytosis Slight A 12/30/23 05:20 Absolute Retic 0.0459 10^6/uL 12/30/23 05:20 Percent Retic 1.33 % (0.8-2.2) 12/30/23 05:20 D-Dimer 1.29 ug/ml (0.0-0.57) H 03/05/24 14:50 Sample Site Rr 01/01/24 06:24 ABG pH 7.400 (7.35-7.45) 01/01/24 06:24 ABG pCO2 46.0 mmHg (35.0-45.0) H 01/01/24 06:24 ABG pO2 54.0 mmHg (80.0-100.0) L 01/01/24 06:24 ABG HCO3 28.5 mmol/L (22-26) H 01/01/24 06:24 ABG O2 Saturation 88.0 % (90-100) L 01/01/24 06:24 ABG Base Excess 3.1 mmol/L (-2.0-2.0) H 01/01/24 06:24 Roman Test Pos 01/01/24 06:24 A-a Gradient 38.0 mmHg 01/01/24 06:24 FiO2 21.0 01/01/24 06:24 Blood Gas Comments Elías well sw 01/01/24 06:24 Sodium 141 mmol/L (136-145) 01/01/24 05:25 Corrected Sodium TNP 01/01/24 05:25 Potassium 3.9 mmol/L (3.5-5.1) 01/01/24 05:25 Chloride 106 mmol/L (98-107) 01/01/24 05:25 Carbon Dioxide 27.5 mmol/L (21-32) 01/01/24 05:25 BUN 16 mg/dL (7-18) 01/01/24 05:25 Creatinine 0.97 mg/dL (0.55-1.02) 01/01/24 05:25 Est GFR (MDRD) Af Amer > 60 (>60) 01/01/24 05:25 Est GFR (MDRD) Non-Af > 60 (>60) 01/01/24 05:25 Glucose 93 mg/dL (65-99) 01/01/24 05:25 Calcium 9.3 mg/dL (8.5-10.1) 01/01/24 05:25 Corrected Calcium 10.3 mg/dL (8.5-10.1) H 01/01/24 05:25 Magnesium 1.9 mg/dL (2.0-2.9) L 01/01/24 05:25 Iron 13 ug/dL (50-175) L 12/30/23 05:20 TIBC 367 ug/dL (250-450) 12/30/23 05:20 Transferrin 268 mg/dL (202-364) 12/30/23 05:20 Ferritin 59 ng/mL (8-252) 12/30/23 05:20 Total Bilirubin 0.10 mg/dL (0.2-1.0) L 01/01/24 05:25 AST 8 Units/L (15-37) L 01/01/24 05:25 ALT 15 Units/L (12-78) 01/01/24 05:25 Alkaline Phosphatase 53 Units/L (46-116) 01/01/24 05:25 Troponin I High Sens 6.2 ng/L (4.0-60.0) 12/29/23 15:52 B-Natriuretic Peptide 80.6 pg/mL (0-79) H 12/29/23 14:50 Total Protein 6.1 g/dL (6.4-8.2) L 01/01/24 05:25 Albumin 2.7 g/dL (3.4-5.0) L 01/01/24 05:25 Globulin 3.4 g/dL (2.5-4.5) 01/01/24 05:25 Albumin/Globulin Ratio 0.8 Ratio (1.1-2.1) L 01/01/24 05:25 Vitamin B12 278 pg/mL (193-986) 12/30/23 05:20 Folate 3.8 ng/mL (>8.6) L 12/30/23 05:20 Specimen Type Clean catch urine 12/29/23 16:35 Urine Color Yellow (YELLOW) 12/29/23 16:35 Urine Appearance Clear (CLEAR) 12/29/23 16:35 Urine pH 7.0 (5.0 - 8.0) 12/29/23 16:35 Ur Specific [place] 1.010 (1.000-1.030) 12/29/23 16:35 Urine Protein Negative (NEGATIVE) 12/29/23 16:35 Urine Glucose (UA) Negative (NEGATIVE) 12/29/23 16:35 Urine Ketones Negative (NEGATIVE) 12/29/23 16:35 Urine Blood Negative (NEGATIVE) 12/29/23 16:35 Urine Nitrite Negative (NEGATIVE) 12/29/23 16:35 Urine Bilirubin Negative (NEGATIVE) 12/29/23 16:35 Urine Urobilinogen 1+ (NORMAL) 12/29/23 16:35 Ur Leukocyte Esterase Negative (NEGATIVE) 12/29/23 16:35 Urine RBC None seen /HPF (0-3) 12/29/23 16:35 Urine WBC 0-2 /HPF (0-5) 12/29/23 16:35 Ur Squamous Epith Cells Rare /HPF (NEGATIVE) 12/29/23 16:35 Urine Bacteria Negative /HPF (NEGATIVE) 12/29/23 16:35 Ur Culture Indicated? Yes/culture set up 12/29/23 16:35 Resp Viral Panel (PCR) See scanned report 12/29/23 14:34 Hospital Course: 53 year old white female patient who was a direct admit on 12/29/23 for treatment of Covid-19 pneumonia with hypoxia. She had ongoing symptoms of abdominal pain, nausea, vomiting, shortness of breath since 12/24/23. She presented to ER on 12/25/23 and tested positive for covid. Chest xray showed probable right middle lobe pneumonia. ER labs revealed an elevated D-dimer. She had a CTA of chest that showed "possible small filling defects in the left apical segment and left lateral basal segment favored to be artifactual rather than true pulmonary emboli. Dilated pulmonary artery consistent with pulmonary artery hypertension. Mildly dilated ascending thoracic aorta. Bilateral airspace and ground-glass opacities worst in the right lower lobe consistent with pneumonia in the appropriate clinical setting. Recommend follow-up imaging to document resolution after appropriate treatment. Recommend nonemergent CT adrenal protocol for left adrenal nodule." She was treated with liter bolus of NS, zofran 4mg IV, and rocephin 1g IV. She was discharged home from ER with prescription for paxlovid , levaquin 500mg daily x7 days, eliquis 10mg PO BID x7 days, then 5mg PO BID. She was also recommended to take zinc, vitamin c, vitamin d, and quarantine for 5 days. Patient denies improvement of symptoms. Upon admission, we obtained labs: wbc 5.1, hgb 10.8, bun 6/creatinine 0.88, d- dimer 1.29, bnp 80.6. Chest xray showed improved aeration of the right hemithora x since 12/25/23. ABG: ph 7.470, pc02 35, p02 56, hc03 25.5, 02 sat 91, fi02 21. She was placed on supplemental 02 via nc at 2lpm. She was started on IV hydration, IV atbx, IV steroids, Respiratory therapy, antitussive medication, antiemetic medication, ppi therapy. 12/30/23 labs: wbc 3.7, hgb 9.4, BUN 6/creatinine 0.88. 12/30/23 EKG obtained and showed sinus rhythm with occasional premature ventricular complexes, Otherwise normal ECG. Echocardiogram obtained on 12/30/23 due to hypoxia, PVC's, and 12/25/23 CTA chest suggesting pulmonary hypertension: EF 63% and showed no signs of pulmonary hypertension. Urine, blood cultures obtained on admission showed no growth. 12/31/23 labs: wbc 6.5, hgb 9.3, bun11/creatinine 1.01. CTA chest obtained on 12/31/23 showed subsegmental atelectasis of the right and left base without evidence for acute pulmonary emboli identified. 01/01/24 labs: wbc 6.7, hgb 9.5, BUN 16/creatinine 0.97, magnesium 1.9. She has a repeat chest xray on 01/01/24 that showed "minimal finding in the right lung base projecting below the hemidiaphragm. These were present with CT from yesterday." 01/01/24 ABG: PH 7.4, PcO2 46, PO2 54, HcO3 28.5, 02 Sat 88%, Abg base excess 3.1, Fi02 21. Patient reported that she was feeling much improved, so we allowed her to discharge home to complete round of po antibiotics, start po steroids, and iron replacement. She will require home oxygen, which has been ordered with [employer]. She will need to follow up with her PCP. She has an appointment scheduled for 01/08/24 10:10AM. Please see discharge plan for list of discharge medications and modifications that we made, electronic medical record for diagnostic tests and labs. The patient was instructed to return to the ER if condition changed or worsened unexpectedly.
== END 2024-01-01 11:35 | disposition home or self-care (01) ==
LOC: MED/SURG
PROVIDERS: ADMIT Internal Medicine; ATTEND Internal Medicine
DX: R11.2 Nausea with vomiting, unspecified; R79.1 Abnormal coagulation profile; R10.84 Generalized abdominal pain; U07.1 COVID-19; J12.82 Pneumonia due to coronavirus disease 2019; J98.11 Atelectasis; R09.02 Hypoxemia; E83.42 Hypomagnesemia; R06.02 Shortness of breath